=== PATIENT | female | born 2000 | race Two or more races ===

== ENCOUNTER 2022-01-26 04:48 | Day surgery (SDC) | payer OTHER ==
[2022-01-25 12:34] VITALS: BMI 25.7
[2022-01-26 12:52] LABS: HEMOGLOBIN 12.3 GM/dL (10.7-15.3); MCH 33.7 pg (25.7-33.7); MCHC 34.3 g/dl (32.0-36.0); MEAN CELL VOLUME 98.1 fl (80-96); MEAN PLT VOLUME 8.1 fl (7.5-11.1); PLATELET COUNT 167 10^3/uL (134-434); RBC 3.67 M/mm3 (3.60-5.2); RDW 12.6 % (11.6-15.6); WHITE BLOOD COUNT 5.2 K/mm3 (4.0-10.0)
[2022-01-26] MEDS ORDERED: MIDAZOLAM HCL 2 MG/2 ML SINGLE DOSE VIAL ONE (13:29)
[2022-01-26] MEDS ORDERED: MIDAZOLAM HCL 2 MG/2 ML SINGLE DOSE VIAL IVPUSH ONE ×2 (14:00→14:10)
[2022-01-26 17:17] VITALS: BP 101/63; PULSE 89; RESP 18; TEMP 98.3
== END 2022-01-26 05:35 | disposition home or self-care (01) ==
LOC: JRADIR 04:48
PROVIDERS: ATTEND Internal Medicine Gastroenterology
PROC: 0FB03ZX Excision of Liver, Percutaneous Approach, Diagnostic (ICD-10-PCS; principal; 2022-01-26)
DX: R94.5 Abnormal results of liver function studies (principal)
CPT/HCPCS: 36415; 47000; 76942-TC; 81025; 85027; 88307-TC; 88313-TC